=== PATIENT | male | born 1970 | race Caucasian/White ===

== ENCOUNTER 2023-05-22 16:31 | Emergency (ER) | payer SELFPAY | END 2023-05-22 17:02 | disposition left against medical advice (07) | LOC: MW.ED 16:31 | DX: Z53.21 Procedure and treatment not carried out due to patient leaving prior to being seen by health care provider (principal) ==

== ENCOUNTER 2024-08-08 11:50 | Inpatient (IN) | payer BC ==
[2024-08-08 12:24] LABS: BASOPHILS ABSOLUTE AUTO 0.08 K/uL (0.00-0.20); BASOPHILS PERCENT AUTO 0.5 % (0.0-1.0); EOSINOPHILS ABSOLUTE AUTO 0.38 K/uL (0.00-0.45); EOSINOPHILS PERCENT AUTO 2.1 % (0.0-6.0); HEMATOCRIT 43.2 % (42.0-52.0); HEMOGLOBIN 14.8 g/dL (14.0-18.0); IMMATURE GRAN ABSOLUTE AUTO 0.06 K/uL (0.00-0.05); IMMATURE GRAN PERCENT AUTO 0.3 % (0.0-0.4); LYMPHOCYTES ABSOLUTE AUTO 3.32 K/uL (1.00-4.80); LYMPHOCYTES PERCENT AUTO 18.8 % (24.0-44.0); MEAN CORPUSCULAR HEMOGLOBIN 31.6 pg (28.0-32.0); MEAN CORPUSCULAR HGB CONC 34.3 g/dL (32.0-36.0); MEAN CORPUSCULAR VOLUME 92.3 fL (83.0-99.0); MEAN PLATELET VOLUME 9.9 fL (9.4-12.4); MONOCYTES ABSOLUTE AUTO 1.08 K/uL (0.00-0.80); MONOCYTES PERCENT AUTO 6.1 % (0.0-8.0); NEUTROPHILS ABSOLUTE AUTO 12.77 K/uL (1.80-7.70); NEUTROPHILS PERCENT AUTO 72.2 % (41.0-71.0); PLATELET COUNT,PLT 372 K/uL (150-400); RED BLOOD CELL COUNT 4.68 M/uL (4.52-5.90); WHITE BLOOD CELL COUNT,WBC 17.69 K/uL (3.9-11.3)
[2024-08-08 12:49] LABS: INR 1.05 (0.86-1.11); PTT,PARTIAL THROMBOPLSTIN TIME 28.9 SEC (23.9-30.7)
[2024-08-08 12:56] LABS: A/G RATIO 0.8 (0.9-1.6); ALANINE AMINOTRANSFERASE,ALT 21 IU/L (14-63); ALKALINE PHOSPHATASE 131 U/L (46-116); ASPARTATE AMNIOTRANSFERASE,AST 18 IU/L (15-37); BILIRUBIN TOTAL 0.3 mg/dL (0.2-1.0); BLOOD UREA NITROGEN,BUN 23 mg/dL (7.0-18.0); C-REACTIVE PROTEIN 0.45 mg/dL (<0.3); CARBON DIOXIDE,CO2 31.3 mmol/L (21.0-32.0); CHLORIDE,CL 104 mmol/L (98-107); CHOLESTEROL HDL 40 mg/dL (40-60); CHOLESTEROL LDL CALCULATED 48 mg/dL (60-180); CHOLESTEROL TOTAL 125 mg/dL (50-200); CREATININE 2.2 mg/dL (0.8-1.3); GLUCOSE RANDOM 175 mg/dL (74-106); MAGNESIUM 1.6 mg/dL (1.8-2.4); POTASSIUM,K 5.1 mmol/L (3.5-5.1); PRO B-TYPE NATRIUR PEPT,BNPPRO 236 pg/mL (0-125); PROTEIN TOTAL,TP 6.8 g/dL (6.4-8.2); SODIUM,NA 143 mmol/L (136-148); TRIGLYCERIDES 186 mg/dL (0-200); VLDL CHOLESTEROL 37 mg/dL (5-55)
[2024-08-08 13:00] LABS: ESTIMATED GFR 35 mL/min (>60)
[2024-08-08] MEDS: Ketorolac 30 MG/ML SDV IVPUSH ONE (13:25)
[2024-08-08] MEDS: Sodium Chloride 0.9% 1,000 ML IV ONE (13:25)
[2024-08-08] MEDS: Piperacillin/Tazobactam 4.5 GM in Sodium Chloride 0.9% 100 ML IV ONE (14:18)
[2024-08-08] MEDS: Iopamidol 755 MG/ML 500 ML Multipack Bottle IVPUSH STA (15:36)
[2024-08-08] MEDS: VANCOmycin 2 GM/400 ML 400 ML IV SCH (15:45)
[2024-08-08] MEDS: Piperacillin/Tazobactam 3.375 GM in Sodium Chloride 0.9% 100 ML IV ONE (15:46)
[2024-08-08] MEDS ORDERED: Acetaminophen 325 MG Tab PO PRN (17:15)
[2024-08-08] MEDS ORDERED: Glucagon,Human Recombinant 1 MG Vial IM PRN ×2 (17:32→18:11)
[2024-08-08] MEDS ORDERED: 50% Dextrose in Water 50 ML Syringe IVPUSH PRN ×2 (17:32→18:11)
[2024-08-08 17:55] LABS: HEMOGLOBIN A1C 9.2 %
[2024-08-08] MEDS ORDERED: Albuterol 8 GM Inhaler INH PRN (18:09)
[2024-08-08] MEDS: Nicotine 14 MG/24 Hr Patch TRDERM SCH (19:30)
[2024-08-08] MEDS: Magnesium Sulf/Wat 2 GM/50 mL 2 GM in Premix Bag 1 BAG IV ONE (20:43)
[2024-08-08] MEDS: Gabapentin 300 MG Cap PO SCH (20:47)
[2024-08-08] MEDS: Insulin Glargine,Human Rec. Analog 100 Units/ML 3 ML Pen SUBCUT SCH (20:57)
[2024-08-08] MEDS ORDERED: Piperacillin/Tazobactam 4.5 GM in Sodium Chloride 0.9% 100 ML IV SCH (22:00)
[2024-08-08] MEDS ORDERED: Naloxone 0.4 MG/ML SDV IVPUSH PRN (23:29)
[2024-08-09] MEDS: Morphine 2 MG/ML SYRINGE IVPUSH PRN (00:39)
[2024-08-09] MEDS: Piperacillin/Tazobactam 4.5 GM in Sodium Chloride 0.9% 100 ML IV SCH (00:55)
[2024-08-09 05:35] LABS: BASOPHILS ABSOLUTE AUTO 0.07 K/uL (0.00-0.20); BASOPHILS PERCENT AUTO 0.7 % (0.0-1.0); EOSINOPHILS ABSOLUTE AUTO 0.35 K/uL (0.00-0.45); EOSINOPHILS PERCENT AUTO 3.6 % (0.0-6.0); HEMOGLOBIN 13.6 g/dL (14.0-18.0); IMMATURE GRAN ABSOLUTE AUTO 0.03 K/uL (0.00-0.05); IMMATURE GRAN PERCENT AUTO 0.3 % (0.0-0.4); LYMPHOCYTES ABSOLUTE AUTO 3.14 K/uL (1.00-4.80); LYMPHOCYTES PERCENT AUTO 32.6 % (24.0-44.0); MEAN CORPUSCULAR HEMOGLOBIN 30.9 pg (28.0-32.0); MEAN CORPUSCULAR HGB CONC 33.2 g/dL (32.0-36.0); MEAN CORPUSCULAR VOLUME 93.2 fL (83.0-99.0); MONOCYTES ABSOLUTE AUTO 0.71 K/uL (0.00-0.80); MONOCYTES PERCENT AUTO 7.4 % (0.0-8.0); NEUTROPHILS ABSOLUTE AUTO 5.33 K/uL (1.80-7.70); NEUTROPHILS PERCENT AUTO 55.4 % (41.0-71.0); PLATELET COUNT,PLT 323 K/uL (150-400); WHITE BLOOD CELL COUNT,WBC 9.63 K/uL (3.9-11.3)
[2024-08-09 05:58] LABS: A/G RATIO 0.7 (0.9-1.6); ALBUMIN 2.5 g/dL (3.4-5.0); BILIRUBIN TOTAL 0.7 mg/dL (0.2-1.0); CALCIUM 8.2 mg/dL (8.5-10.1); CARBON DIOXIDE,CO2 28.6 mmol/L (21.0-32.0); CREATININE 2.3 mg/dL (0.8-1.3); EST CRCL DRUG DOSING (CG) 39.83 mL/min; MAGNESIUM 2.1 mg/dL (1.8-2.4); PROTEIN TOTAL,TP 5.9 g/dL (6.4-8.2)
[2024-08-09] MEDS: Levothyroxine 100 MCG Tab PO SCH (06:07)
[2024-08-09] MEDS: Insulin Aspart 100 Units/ML 3 ML Pen SUBCUT SCH (07:38)
[2024-08-09] MEDS: Piperacillin/Tazobactam 3.375 GM in Sodium Chloride 0.9% 100 ML IV SCH (08:12)
[2024-08-09] MEDS: Escitalopram 10 MG Tab PO SCH (09:02)
[2024-08-09] MEDS: Hydrochlorothiazide 12.5 MG Cap PO SCH (09:02)
[2024-08-09] MEDS: Lisinopril 10 MG Tab PO SCH (09:03)
[2024-08-09] MEDS: Tiotropium BR/Olodaterol HCL 4 GM Inhalation Spray 2.5mcg/1 dose; 10 doses INH SCH (09:06)
[2024-08-09] MEDS: Gadoteridol 279.3 MG/ML 20 ML SDV IVPUSH ONE (10:41)
[2024-08-09] MEDS ORDERED: VANCOmycin 1 GM in Sodium Chloride 0.9% 250 ML IV SCH (14:00)
== END 2024-08-09 13:30 | disposition home or self-care (01) | DRG 420 ==
LOC: MW.ED 11:50 → MW.MS 16:23
PROVIDERS: ADMIT Family Medicine; ATTEND Family Medicine
DX: E11.621 Type 2 diabetes mellitus with foot ulcer (principal); N18.30 Chronic kidney disease, stage 3 unspecified; I12.9 Hypertensive chronic kidney disease with stage 1 through stage 4 chronic kidney disease, or unspecified chronic kidney disease; E86.0 Dehydration; E03.9 Hypothyroidism, unspecified; J44.9 Chronic obstructive pulmonary disease, unspecified; Z88.8 Allergy status to other drugs, medicaments and biological substances; Z79.899 Other long term (current) drug therapy; Z72.0 Tobacco use; Z79.4 Long term (current) use of insulin
CPT/HCPCS: 36415; 73630-26-RT; 73630-RT; 73701-26-RT; 73701-RT; 73720-26-RT; 73720-RT; 80053; 80061; 80202; 82947; 83036; 83605; 83735; 83880; 85025; 85610; 85652; 85730; 86140; 87040; 96361; 96365; 96367; 96375; 99285; 99285-25; A9270-GY; A9579; J1815-GY; J1885; J2270; J2543; J3372; J3475; J7030; Q9967